=== PATIENT | female | born 1930 | race Caucasian/White ===

== ENCOUNTER 2016-10-30 21:39 | Emergency (ER) | payer MEDICARE, BC ==
[~2016-10-30] VITALS: Ht 177.8 cm; Wt 59.0 kg
[2016-10-30] MEDS ORDERED: ALENDRONATE SOD70 MG PO (22:16)
[2016-10-30] MEDS ORDERED: ALREX5 ML OPTH (22:17)
[2016-10-30] MEDS ORDERED: ZOFRAN ODT4 MG PO (22:29)
[2016-10-30] MEDS ORDERED: DOXYCYCLINE HYC20 MG PO (22:29)
[2016-10-30] MEDS ORDERED: FERROUS SULFAT324 MG PO (22:29)
[2016-10-31] MEDS ORDERED: FLAGYL500 MG PO (00:38)
[2016-10-31] MEDS ORDERED: POTASSIUM CHLO10 MEQ PO (00:38)
[2016-10-31] MEDS ORDERED: CIPRO500 MG PO (00:38)
--- NOTE | 2016-10-31 07:03 | EKG ---
[facility] [address] [facility] [place] [address] Signed Sinus tachycardia Right bundle branch block Left anterior fascicular block Bifascicular block Possible Lateral infarct , age undetermined Abnormal ECG No previous ECGs available Confirmed by ANDREZ BUSTOS MD ([id number]) on 10/31/2016 7:03:30 AM Electronically Signed By: ANDREZ BUSTOS MD 10/31/16 0703 PATIENT NAME: LACHELLE WOMACK Electrocardiogram DATE OF : 28 PHYSICIAN: ANDREZ BUSTOS MD REPORT #: [id number] REPORT IS CONFIDENTIAL AND NOT TO BE RELEASED WITHOUT AUTHORIZATION
== END 2016-10-31 01:03 | disposition home or self-care (01) ==
LOC: ED 21:39
DX: K57.92 Diverticulitis of intestine, part unspecified, without perforation or abscess without bleeding (principal); E87.6 Hypokalemia; Z79.899 Other long term (current) drug therapy; Z79.2 Long term (current) use of antibiotics
CPT/HCPCS: 74177; 80053; 81001; 83690; 85025; 93005; 93010; 96374; 99284; J2405; Q9967

== ENCOUNTER 2019-06-02 15:07 | Inpatient (IN) | payer MEDICARE ==
[~2019-06-02] VITALS: Ht 177.8 cm; Wt 63.9 kg
[~2019-06-02 15:07] MED LIST: ALENDRONATE SOD70 MG PO; ALREX5 ML OPTH; ALREX5 ML OU; AZITHROMYCIN250 MG PO; CEFDINIR300 MG PO; CIPRO500 MG PO; DOXYCYCLINE HYC20 MG PO; FERROUS SULFAT324 MG PO; FLAGYL500 MG PO; LASIX20 MG PO; MELATIN3 MG PO; METAMUCIL0.52 GM PO; POTASSIUM CHLO10 MEQ PO; RANITIDINE HCL150 M1 PO; REMERON15 MG PO; RESTASIS1 DROP OD; ZOFRAN ODT4 MG PO
[2019-06-02] MEDS ORDERED: ACETAMINOPHEN325 M1 PO (15:45)
--- NOTE | 2019-06-02 18:14 | EKG ---
[facility] [address] [facility] [place], [place] [address] Signed Normal sinus rhythm Right bundle branch block Left anterior fascicular block Bifascicular block Left ventricular hypertrophy with repolarization abnormality Possible Lateral infarct (cited on or before 30-OCT-2016) Abnormal ECG Confirmed by KG DANIELSON DO ([id number]) on 06/02/2019 6:14:05 PM Electronically Signed By: KG DANIELSON DO 06/02/19 1814 PATIENT NAME: SHANTALACHELLE Electrocardiogram DATE OF : 28 PHYSICIAN: KG DANIELSON DO REPORT #: [id number] REPORT IS CONFIDENTIAL AND NOT TO BE RELEASED WITHOUT AUTHORIZATION
--- NOTE | 2019-06-02 20:09 | NUR ---
PT ADMITTED TO ROOM 120 FROM ED. ARRIVED WITH FAMILY AT BEDSIDE. PT TALKING UNABLE TO ANSWER QUESTIONS PERTAINING TO QUESTIONS. 4 STAFF PULLED PT ACROSS WITH BLACK PAD. PLEASANT, DID SAY THAT PT PULLED OUT IV WHILE IN ED. PT WITH NO GRIMALDO, PLANS TO PUT IN.
--- NOTE | 2019-06-02 20:25 | NUR ---
GRIMALDO CATH PLACED USING STERILE TECHNIQUE. PT MILLIE WELL. IMMEDIATE RETURN OF CLEAR YELLOW URINE. SECUREMENT DEVICE APPLIED.
--- NOTE | 2019-06-02 21:00 | NUR ---
ASSESSMENT COMPLETE. PT CONFUSED, NOT ABLE TO ANSWER QUESTIONS APPROPRIATELY. GRIMALDO PATENT, DRAINING YELLOW URINE. IVF INFUSING. SIDE RAILS UP, BED ALARM ON FOR SAFETY. PT IN VIEW OF NURSES STATION.
--- NOTE | 2019-06-02 22:20 | NUR ---
SCHEDULED MEDS GIVEN WITH SIPS OF WATER. PT REQUIRES CONTINUAL PROMPTING TO DRINK AND SWALLOW. NO SWALLOWING ISSUES NOTED.
--- NOTE | 2019-06-03 00:29 | NUR ---
PT RESTING IN BED WITH EYES CLOSED, NAD.
--- NOTE | 2019-06-03 02:35 | NUR ---
PT APPEARS RESTLESS AND SAYING "OW". MEDICATED WITH PRN. CPOX PLACED TO MONITOR OXYGEN SATURATIONS AND HEART RATE. SATS 93% ON RA. HR 87.
--- NOTE | 2019-06-03 03:42 | NUR ---
PT RESTING WITH EYES CLOSED, OXYGEN SATS 92% ON RA, HR 87
--- NOTE | 2019-06-03 05:37 | NUR ---
PT SLEPT WELL. HX DEMENTIA, DOES NOT USE CALL LIGHT. NPO . GRIMALDO. IVF. IV ABX. MEDICATED ONE TIME WITH PRN DILAUDID 0.3 MG FOR PAIN. CPOX.
--- NOTE | 2019-06-03 07:33 | NUR ---
PT RESTING SOUNDLY AT BEDSIDE REPORT. PT TALKING WITH EYES CLOSED MOSTLY NONSENSICAL SHE DID SAY "OH MY LEG HURTS SO BAD" THOUGH WHEN ASKED SHE DENIES PAIN. MEDICATED FOR COMFORT AT THIS TIME, NO DOSE SINCE APPROX 2AM. PT CONTINUES RESTING IN BED EYES CLOSED PULSE OX IN PLACE BED ALARM ON IV INFUSING, GRIMALDO DRAINING CLEAR YELLOW URINE
--- NOTE | 2019-06-03 08:24 | NUR ---
PT APPEARS RESTFUL SINCE PAIN MEDS ADMINISTERED. SNORING SOFTLY NO FURTHER MUMBLING OR STATING SHE IS PAINFUL. BREATHING IS EVEN AND UNLABORED.
--- NOTE | 2019-06-03 09:25 | NUR ---
PT SLEEPING. NO FAMILY PRESENT. STAFF NURSE IN ROOM. STATES PATIENT HAS DEMENTIA AND IS NOT ANSWERING QUESTIONS. WILL RETURN WHEN FAMILY IS PRESENT OR CALL THEM.
--- NOTE | 2019-06-03 09:43 | NUR ---
PT CONTINUES TO REST SOUNLDY AWAKENS TO VOICE NO S/S OF DISCOMFORT
--- NOTE | 2019-06-03 09:58 | NUR ---
PATIENT SLEEPY IN BED. VITAL SIGNS AND I&O DONE. CALL LIGHT WITHIN REACH. NO OTHER NEEDS AT THIS TIME
--- NOTE | 2019-06-03 10:00 | NUR ---
FAMILY IN ROOM. PATIENT REMAINS WITH EYES CLOSED DURING CONVERSATION, MUMBLES AT TIMES. DAUGHTER MARCUS HERE, SHE STATES SHE LIVES AT [facility] ALSO IN LONG-TERM APARTMENT. TRISH SHARMA IS FAMILY CONTACT AND DAUGHTER STATES THAT IS RIGHT. TRISH DOES MOST OF THE TALKING. TRISH STATES DR WAY DISCUSSED WITH THEM THAT PATIENT WOULD NEED LONG-TERM CARE AT SNF AT DISCHARGE. THEY STATE THEIR FIRST CHOICE IS TO STAY IN TOWN AT [facility]. WE DISCUSSED THAT IT MIGHT BE HARD FOR HER TO REHAB DUE TO DEMENTIA. DISCUSSED MEDICARE COVERAGE FOR SNF. TRISH RECEIVED A PHONE CALL FROM PATIENTS CORINNA MARK KAYLA ([facility]) [phone]. SHE GAVE TRISH THE NEW MEDICARE # WHICH WAS WRITTEN DOWN AND GIVEN TO ADMITTING. PATIENT USES A WALKER AT TIMES, WHEELCHAIR MOST OF THE TIME. SHE IS ABLE TO FEED SELF. ALL HER MEDS ARE DONE BY [facility] STAFF. DISCUSSED THAT PATIENT IS EXPECTED TO GO TO SURGERY LATE THIS AFTERNOON. DISCUSSED WE WILL CALL [facility] AND MAKE ARRANGEMENTS. QUESTIONS ANSWERED. SPOKE WITH MARKET RESEARCH INTERN THAT PT FAMILY IS REQUESTING THEIR FACILITY AT DISCHARGE. SHE STATES TO SEND CLINICALS AND THEY WILL PROCESS TOMORROW. STAFF UPDATED.
--- NOTE | 2019-06-03 11:11 | NUR ---
PT DAUGHTER IS PRESENT IN THE ROOM UPDATED ON PLANS FOR PT AND SURGERY TIME. PT MEDICATED FOR PAIN AGAIN, SHE WAS STATING THERE IS SOMETHING TERRIBLY WRONG WITH MY LEG. 10 MINUTES LATER PT RESTING QUIETLY SNORING LIGHTLY. PULSE OX IN PLACE SATS 97% BED ALARM IS SET
--- NOTE | 2019-06-03 13:31 | NUR ---
PATIENT SLEEPY IN BED. DAUGHTER AND RN IN ROOM. VITAL SIGNS AND I&O DONE. HIGH BLOOD PRESSURE. RN NOTIFIED. WARM BLANKET PROVIDED.CALL LIGHT WITHIN REACH. NO OTHER NEEDS AT THIS TIME
--- NOTE | 2019-06-03 13:43 | NUR ---
pt appears to be sleeping soundly after repositioning. daughter at bedside
--- NOTE | 2019-06-03 13:53 | NUR ---
pt to o/r via bed with surgery crew
--- NOTE | 2019-06-03 16:10 | NUR ---
06/03/19 1610 Mirela Palma 1601- PT ARRIVES TO PACU NONAROUSABLE TO STIMULI. RESP EVEN AND UNLABORED. OXYGEN SAT HIGH 90'S TO 100% ON 8L VIA MASK.
--- NOTE | 2019-06-03 16:47 | NUR ---
chart faxed to Domingo for review at [facility].
--- NOTE | 2019-06-03 17:07 | NUR ---
PT TO ROOM VIA BED FAMILY PRESENT X2. PT AWAKE APPEARS COMFORTABLE DOES NOT ANSWER QUESTIONS OR FOLLOW COMMANDS DUE TO COGNITION. ORAL CARE PROVIDED. PULSE OX, SCD'S, HEEL PROTECTORS, MARLEE HOSE, GRIMALDO CATH ALL IN PLACE. SIPS OF H20 WELL TOLERATED
--- NOTE | 2019-06-03 17:43 | NUR ---
PATIENT SITTING UP IN BED. DAUGHTER AND RN IN ROOM. VITAL SIGNS DONE BY RN. I&O DONE. CALL LIGHT WITHIN REACH. NO OTHER NEEDS AT THIS TIME
--- NOTE | 2019-06-03 18:02 | NUR ---
PT HAS HAD NO S/S OF PAIN. TOLERATES SIPS OF FLUID AND SOME BITES OF SOFT FOOD ITEMS, NO COUGHING. SATS REMAIN AT 97%. PT DOES NOT FOLLOW COMMANDS OR ANSWER QUESTIONS APPROPRIATELY UNSURE IF SPINAL HAS WORN OFF. PUSLSES PALPABLE, DRESSING DRY.
--- NOTE | 2019-06-03 19:31 | NUR ---
REPORT RECEIVED FROM DAY SHIFT RN. PT TALKING QUIETLY TO HERSELF. CPOX IN PLACE, 97% ON RA. SCD'D/TEDS/HP IN PLACE. LEFT HIP DRESSING CDI. IVF INFUSING. BED ALARM ON. CALL LIGHT IN REACH.
--- NOTE | 2019-06-03 19:34 | NUR ---
PT GIVEN ONE NORCO CRUSHED IN PUDDING BIT FOR 5/10 ON NON-VERBAL SCALE. PT SAID "I HAVE PAIN IN MY SOUL"
--- NOTE | 2019-06-03 21:00 | NUR ---
EVENING ASSESSMENT COMPLETE. SCHEDULED MEDS GIVEN, NO SWALLOWING ISSUES NOTED. LEFT HIP DRESSING CDI, FRESH ICE TO INCISION. SCD'S/MARLEE'S/HP IN PLACE. STRONG PULSES BILAT, PT ABLE TO WIGGLE TOES. GRIMALDO PATENT DRAINING YELLOW URINE. PT APPEARS TO BE RESTING COMFORTABLY AFTER PRN GIVEN. CPOX IN PLACE, SATS 95-97% ON RA. BED ALARM ON FOR SAFETY. CALL LIGHT IN REACH.
--- NOTE | 2019-06-04 00:30 | NUR ---
PT RESTING IN BED WITH EYES CLOSED, RESPIRATIONS EVEN AND UNLABORED. CPOX IN PLACE. SPO2 98%.
--- NOTE | 2019-06-04 03:00 | NUR ---
PT GRIMACING AND TENSE. MEDICATED WITH PRN PER ORDER. CRUSHED PILL AND GAVE WITH APPLESAUCE. SCD'S/MARLEE'S/HP IN PLACE. LEFT HIP DRESSING CDI. FRESH ICE TO INCISION. CPOX IN PLACE. BED ALARM ON.
--- NOTE | 2019-06-04 04:34 | NUR ---
PT RESTING IN BED WITH EYES CLOSED, NAD.
--- NOTE | 2019-06-04 06:31 | NUR ---
REPOSITIONED PT IN BED. GRIMALDO CARE DONE. IV ABX INFUSING.
--- NOTE | 2019-06-04 07:20 | NUR ---
Bedside report received, orders acknowledged. Patient sleeping in bed, respirations even and unlabored. Call light within reach.
--- NOTE | 2019-06-04 07:37 | OR ---
[facility] [address] [facility] [place] [place] [address] Signed DATE OF OPERATION: 06/03/2019 SURGEON: Radha Swann MD PREOPERATIVE DIAGNOSIS: Left femoral neck fracture, valgus impacted. POSTOPERATIVE DIAGNOSIS: Left femoral neck fracture, valgus impacted. PROCEDURE PERFORMED: Open reduction and internal fixation of left hip. CONTROL CLERK REPAIRS: None. ANESTHESIA: General. BLOOD LOSS: Minimal. IMPLANTS: Three 7.0 screws. BRIEF HISTORY: Claudette is an 88-year-old female with severe dementia who was at the assisted living facility and suffered a ground level fall several days ago. She was brought in last night with pain and inability to walk. Radiographs showed a valgus impacted femoral neck fracture. Risks and benefits of operative treatment discussed with her family and they elected to proceed. DESCRIPTION OF PROCEDURE: Once consent was obtained, she was taken to the operating room. After adequate anesthesia, she was placed on the fracture table. The right leg was flexed, abducted, and externally rotated on a well-padded leg lanza. The left was placed in a foot traction, but no significant traction was applied. The image intensifier was brought in. The hip was easily visualized. The hip was prepped and draped in a standard sterile fashion. The guide pin was then used to ascertain the position of the incision and 1.5-inch incision was made through skin and subcutaneous tissue and taken down Electronically Signed By: RADHA SWANN MD 06/04/19 0737 PATIENT NAME: CLAUDETTE WOMACK OPERATIVE REPORT DATE OF : 28 REPORT #: [id number] PHYSICIAN: RADHA SWANN MD PCP: VARSHA PHAM DAMAGE ADJUSTER REPORT IS CONFIDENTIAL AND NOT TO BE RELEASED WITHOUT AUTHORIZATION [facility] [address] [place] [address] [place], [place] [address] Signed through the ID band. The vastus was then split longitudinally. The first guide pin was then placed at the apex of the femoral neck and advanced from the lateral femur into the head. Two more were placed inferior to this in a triangle position. All three were measured. Appropriate length screws were placed. Moderately good purchase in the bone was noted. The three guide pins were removed. The wound was copiously irrigated with normal saline, closed with 2-0 Monocryl and octavio. The wound was then dressed with an Acticoat dressing. She was awakened and taken to the recovery room in satisfactory condition. All sponge, needle, and instrument counts were correct. Radha Swann MD BA/MODL /[id number] Copies: ~ Electronically Signed By: RADHA SWANN MD 06/04/19 0737 PATIENT NAME: CLAUDETTE WOMACK OPERATIVE REPORT DATE OF : 28 REPORT #: [id number] PHYSICIAN: RADHA SWANN MD PCP: VARSHA PHAM REPORT IS CONFIDENTIAL AND NOT TO BE RELEASED WITHOUT AUTHORIZATION
--- NOTE | 2019-06-04 07:49 | NUR ---
Dr. Swann in room to assess patient. Orders acknowledged, patient toe touch with weight bearing. Plan for patient to transfer to chair for breakfast. Denies pain. Call light within reach.
--- NOTE | 2019-06-04 09:00 | NUR ---
Patient sitting up in chair. Breakfast delivered. Staff assist with meal. Call light within reach.
[2019-06-04] MEDS ORDERED: TYLENOL325 MG PO (10:58)
--- NOTE | 2019-06-04 10:58 | NUR ---
MED REC COMPLETE
--- NOTE | 2019-06-04 11:00 | NUR ---
Patient sleeping in chair, respirations even and unlabored. SCDs in place, fluids running at 125 mls/hr. Call light within reach.
--- NOTE | 2019-06-04 12:24 | NUR ---
Patient sleeping in chair, respirations even and unlabored. Call light within reach.
--- NOTE | 2019-06-04 14:15 | NUR ---
IV ancef given, LR running at 75 mls/hr. Patient denies needs. Call light within reach.
--- NOTE | 2019-06-04 15:26 | NUR ---
Patient reports pain in her left leg, prn pain medication given (see MAR). Daughter in room with patient. LR running at 75 mls/hr. Chair alarm in place, SCDs and heel protectors in place. Denies further needs at this time, call light within reach.
--- NOTE | 2019-06-04 17:01 | NUR ---
Patient sleeping in chair, rouses to voice. PM medications given. LR running at 75 mls/hr. Caregiver arrives to room with eye drops, will reconcile with pharmacy. Dinner delivered, nursing staff to assist with meal. Denies pain. Call light within reach.
--- NOTE | 2019-06-04 19:50 | NUR ---
REPORT RECEIVED FROM DAY SHIFT RN. PT LYING IN BED, AWAKE, MUMBLING TO HERSELF. DRESSING TO LEFT HIP INTACT. SCD'S/MARLEE'S/HP IN PLACE. WARM BLANKET GIVEN. IVF INFUSING. BED ALARM ON.
--- NOTE | 2019-06-04 19:51 | NUR ---
Patient spent shift oob in chair with alarm on. SCDs and heel protectors in place. LR running at 125 mls/hr at end of shift. Urine output decreased throughout shift, with 50 mls from [id number]. Dr. Swann notified, fluids increased. Patient reporting pain throughout shift, prn pain medication given (7.5mg norco).
--- NOTE | 2019-06-04 22:15 | NUR ---
ASSESSMENT COMPLETE. SCHEDULED MEDS GIVEN CRUSHED WITH PUDDING. PT TENSE AND GRIMACING, PRN GIVEN FOR PAIN. NO SWALLOWING ISSUED NOTED. DRESSING TO LEFT HIP CDI. SCD'D/MARLEE'S/HP IN PLACE. FRESH ICE TO INCISION. URINE OUTPUT IMPROVED, GRIMALDO EPTIED FOR 675 ML YELLOW URINE. IVF INFUSING. WARM BLANKET GIVEN. BED ALARM ON.
--- NOTE | 2019-06-05 00:33 | NUR ---
PT RESTING IN BED WITH EYES CLOSED, NAD.
--- NOTE | 2019-06-05 03:02 | NUR ---
PT RESTING IN BED WITH EYES CLOSED. FACE RELAXED, DOES NOT APPEAR TO BE IN PAIN.
--- NOTE | 2019-06-05 05:30 | NUR ---
PT MEDICATED WITH PRN FOR SIGNS OF PAIN. CRUSHED AND GIVEN WITH PUDDING AND HIGH PROTEIN CHOCOLATE ENSURE. PT REPOSITIONED IN BED.
--- NOTE | 2019-06-05 05:51 | NUR ---
PT SLEPT WELL. PT HAS DEMENTIA, DOES NOT USE CALL LIGHT. BED ALARM ON FOR SAFETY ALTHOUGH PT DOES NOT MOVE ON HER OWN. GRIMALDO, URINE OUTPUT IMPROVED THIS SHIFT. SCD'S/MARLEE'S/HP/ICE PACK. LEFT HIP DRESSING CDI. MEDICATED WITH PRN NORCO X 2. CRUSH PILLS WITH PUDDING.
--- NOTE | 2019-06-05 07:24 | NUR ---
PT SLEEPING, RESP EVEN AND NON LABORED. PT HAS NO S/S OF DISTRESS NOTED. PERSONAL SUPPLIES AND CALL LIGHT WIHTIN REACH. PERSONAL SUPPLIES AND CALL LIGHT WITHIN REACH.
--- NOTE | 2019-06-05 11:15 | NUR ---
REMOVED GRIMALDO PER DOC ORDER. 9ML SALINE REMOVED FROM CATHETER BALLOON. CATHETER TIP INTACT. PT TOLERATED REMOVAL WELL. PT NOW DTV.
--- NOTE | 2019-06-05 11:30 | NUR ---
Call from Domingo at [facility]. They will accept patient tomorrow. Pt will need to go by ambulance and [facility] notified. I will call Domingo and [facility] in am to confirm times. Dr. Swann notified pt is accepted to [facility]. Pt's daughter, Padmini, is in the room. Updated mom can go to [facility]. She states they have a fiduciary to pay bills. Her name is Izabel Shen phone number [phone]. This number was called to Domingo. Daughter denies questions or concerns.
--- NOTE | 2019-06-05 12:00 | NUR ---
ONE TAB NORCO 7.5/325MG PO ADMIN FOR REPORTS OF LEG PAIN.
--- NOTE | 2019-06-05 15:07 | NUR ---
ADMIN ONE TAB NORCO 7.5/325MG PO FOR REPORTS OF LEFT LEG PAIN. PT REPOSITIONED AT THIS TIME. DAUGHTER AT BEDSIDE VISITING WITH PT. NO FURTHER NEEDS AT THIS TIME.
--- NOTE | 2019-06-05 18:46 | NUR ---
Requested by charge nurse to visit with Olena bartholomew as she is concerned about payment for [facility]. Jo from [facility] told her Claudette would have to pay $[phone] to go to [facility]. Niece is very upset. Explained about 3 night stay in the hospital and Skilled PT. Reassured I had spoken with [facility] today and they felt pt would be able to complete rehab. and medicare should cover her rehab. for 20 days. She may have a copay after before the 20 days if she refuses to work with PT. At 20 days she will have a copay. [facility] will discuss. Notified I do not work for [facility], and she will need to discuss concerns with them. She also had questions regarding Brigette, pts. daughter. She states she cannot live on her own and has mental health diagnosis. Requested she speak to [facility] doctor about this and ask for assistance with resources. She was very appreciative of information.
--- NOTE | 2019-06-05 19:52 | NUR ---
pt has voided, incontinent of urine, attends changed. on room air, confused and slight agitation noted, easily reoriented. IVF in LA, armboard covered with becka wrap to prevent accicental dislodgement, pt pulling at it, redressed, L hip w ice, scds in place. continue to reorient, bed alarm on. call light at bedside
--- NOTE | 2019-06-05 20:31 | NUR ---
ROUNDED CAHRGE. PATIENTS VITALS TAKEN AND RECORDED. ANGEL LUIS RN PRESENT IN THE ROOM. NO NEEDS NOTED. CALL LIGHT IN REACH.
--- NOTE | 2019-06-06 02:47 | NUR ---
Resting, no distress, on room air. Turned Q2h, ice to L hip
--- NOTE | 2019-06-06 03:29 | NUR ---
Incontinent of large amount of urine, skin care, and fresh attends done, Repositioned to R side. L hip dressing intact. SCDs in place, On room air. Tolerating sips of fluids. Bed alarm in place. Tolerated well
--- NOTE | 2019-06-06 06:27 | NUR ---
PT HAS SLEPT OFF AND ON THIS SHIFT, TURNED Q2H, TOLERATED WELL. L HIP DRESSING IN PLACE, EDEMA 1+ TO HIP. SCDS IN PLACE. HAD BEEN PULLING AT IV TUBE EARLIER, IV SITE COVERED WITH BYRON WRAP TO PREVENT ACCIDENTAL DISLODGEMENT. INCONTINENT OF LARGE AMOUNT OF URINE SEVERAL TIMES, SKIN CARE DONE. TOLERATING SIPS OF FLUIDS, NEEDS ASSISTANCE WITH FEEDING, MEDS CRUSHED AND WITH PUDING. HOB ELEVATED, ASPIRATION ANDHIGH FALL RISK PRECAUTIONS IN PLACE. PT CONFUSED, BUT EASILY REDIRECTABLE
--- NOTE | 2019-06-06 07:23 | NUR ---
REPORT RECEIVED FROM DUKE HEIN. PT RESTING IN BED WITH EYES CLOSED, TALKING IN SLEEP, NONSENSICAL PHRASES. BED RAILS UP, BED ALARM ON. PT EASILY VIEWED FROM NURSES STATION. NEW BAG OF FLUID HUNG (SEE MAR).
--- NOTE | 2019-06-06 07:45 | NUR ---
Updated PT/OT assessments faxed to Domingo at [facility]. SNF orders given to Dr. Swann to complete.
[2019-06-06] MEDS ORDERED: HYDROCODON-ACE1 EA11 PO (07:47)
--- NOTE | 2019-06-06 08:50 | NUR ---
IN TO ASSESS PAIN, PATIENT IS VERY SLEEPY, WILL NOT OPEN EYES, UNABLE TO VERBALIZE PAIN, BUT IS RESTING QUIETLY AT THIS TIME.
--- NOTE | 2019-06-06 09:45 | NUR ---
MORNING ASSESSMENT AND MEDICATION DUE. PT DISORINTED TO ALL BUT INTERACTING WITH NURSE. 3-5/10 ON FACES SCALE DEPENDING ON ACTIVITY. ASSESSMENT DONE. LEFT HIP WOUND CLEAN/DRY AND INTACT. WOUND TO COCCYX HEALING, NO DRESSING, CLEAN/DRY/INTACT. DEPENDS AND LINENS SATURATED. SHANIA CARE DONE. DEPENDS CHANGED, MEAGHAN LIFT UP TO CHAIR. PIV APPEARS INFILTRATED. PIV DC'D ANTICIPATING DISCHARGE. GAUZE AND COBAN APPLIED. PT ASSISTED WITH EATING BREAKFAST. MEDICATIONS GIVEN. CHAIR ALARM ON. PT EASILY VIEWED FROM NURSES STATION.
--- NOTE | 2019-06-06 10:00 | NUR ---
Notified by Domingo they have reviewed orders and will accept patient. Orders, PASSR, Med list faxed. [phone] Called [facility] for nonemergent transport.
--- NOTE | 2019-06-06 11:05 | NUR ---
THIS RN TO ROOM TO CHECK ON PT. PT RESTING IN CHAIR WITH EYES CLOSED. FLACC SCORE OF 0/10. CHAIR ALARM ON. PT ALLOWED TO REST. EASILY VIEWED FROM NURSES STATION.
--- NOTE | 2019-06-06 11:24 | NUR ---
REPORT CALLED TO DUKE JAVED AT [facility]. TELLO STATES HER QUESTIONS HAVE BEEN ANSWERED. PT TRANSFERED TO ST[facility]ER BY MEAGHAN LIFT. TRANPORTED BY NON EMERGENT TRANSPORT PERSONMICHI, REPORT GIVEN. NO QUESTIONS.
--- NOTE | 2019-06-07 07:06 | DS ---
[facility] [address] [place], [place] [address] Signed ADMISSION DATE: 06/02/2019 DISCHARGE DATE: 06/06/2019 ADMISSION DIAGNOSIS: Left hip fracture. DISCHARGE DIAGNOSIS: Left hip fracture. PROCEDURE PERFORMED DURING THIS HOSPITALIZATION: Open reduction and internal fixation, left hip. BRIEF HISTORY: Claudette is an 88-year-old female who suffered a ground level fall several days before presenting to the ER. She was unable to bear weight and eventually found to have left hip pain. Radiographs showed a valgus impacted left femoral neck fracture. Risks and benefits of operative treatment were discussed with her niece, who is power of assistant attorney general. They elected to proceed for comfort. She was admitted to the hospital and cleared by Medicine Service overnight. She was taken to the operating room next day and underwent open reduction and internal fixation with no difficulties. She was taken back to the recovery room and subsequently to orthopedic floor. She did well postoperatively, although she was not able to do much more than transfer to the chair. She has significant dementia and does not participate in physical therapy . She will need half-way facility for long-term rehab and will be discharged to there today. She will continue her on current medication and aspirin for DVT prophylaxis. She was kept on SCDs and aspirin during her hospitalization. She will follow up with me in 7 to 10 days or sooner should she have problems. Radha Swann MD BA/MARKUS /[id number] Copies: Electronically Signed By: RADHA SWANN MD 06/07/19 0706 PATIENT NAME: CLAUDETTE WOMACK DISCHARGE SUMMARY DATE OF : 28 REPORT #: [id number] PHYSICIAN: RADHA SWANN MD PCP: VARSHA PHAM REPORT IS CONFIDENTIAL AND NOT TO BE RELEASED WITHOUT AUTHORIZATION [address] [address] Signed ~ Electronically Signed By: RADHA SWANN MD 06/07/19 0706 PATIENT NAME: CLAUDETTE WOMACK DISCHARGE SUMMARY DATE OF : 28 REPORT #: [id number] PHYSICIAN: RADHA SWANN MD PCP: VARSHA PHAM REPORT IS CONFIDENTIAL AND NOT TO BE RELEASED WITHOUT AUTHORIZATION
== END 2019-06-06 11:25 | DRG 481 ==
LOC: ED 15:07 → MS 19:29
PROVIDERS: ADMIT Specialist
PROC: 0QS704Z Reposition Left Upper Femur with Internal Fixation Device, Open Approach (ICD-10-PCS; principal; 2019-06-03 14:45)
DX: S72.002A Fracture of unspecified part of neck of left femur, initial encounter for closed fracture (principal); N39.0 Urinary tract infection, site not specified; F03.90 Unspecified dementia, unspecified severity, without behavioral disturbance, psychotic disturbance, mood disturbance, and anxiety; K21.9 Gastro-esophageal reflux disease without esophagitis; G47.00 Insomnia, unspecified; F39 Unspecified mood [affective] disorder; H40.9 Unspecified glaucoma; W18.30XA Fall on same level, unspecified, initial encounter; Y92.099 Unspecified place in other non-institutional residence as the place of occurrence of the external cause; Z79.899 Other long term (current) drug therapy; Z88.0 Allergy status to penicillin
CPT/HCPCS: 01220; 36415; 51701; 73502; 80048; 80053; 81001; 83735; 84484; 85025; 87077; 87088; 87186; 93005; 93010; 97110; 97163; 97165; 97530; 99285-25; A9270; C1713; J0690; J0696; J1170; J2250; J2704; J3010; J3480; J7121